=== PATIENT | female | born 1980 | race Caucasian/White ===

== ENCOUNTER → 2023-09-19 | Emergency (ER) | payer OTHER ==
[~2023-09-19] VITALS: Ht 142.2 cm; Wt 41.5 kg
[~2023-09-19] MED LIST: CYCL-1 PO; CYCL-120 PO; DIAZ5TAB22 PO; HYDR-3965 PO; HYDR-3973 PO; HYDR1TAB PO; IBUP-1051 PO; IBUP-1984 PO; NAPR-56 PO; PANT-47 PO; RISP0.5T74 PO; TRAZ-91 PO; VENL-190 PO; ZOF4T PO
[2023-09-19 12:36] VITALS: BP 126/70; PULSE 78; RESP 18; TEMP 97.8; O2SAT 97
== END | disposition home or self-care (01) ==
LOC: ER 10:48
DX: S92.901D Unspecified fracture of right foot, subsequent encounter for fracture with routine healing (principal); G89.29 Other chronic pain; F31.9 Bipolar disorder, unspecified; Z88.0 Allergy status to penicillin; Z88.5 Allergy status to narcotic agent; Z79.899 Other long term (current) drug therapy; Z91.040 Latex allergy status; X58.XXXD Exposure to other specified factors, subsequent encounter
CPT/HCPCS: 99284

== ENCOUNTER 2025-04-02 23:49 | Emergency (ER) | payer OTHER ==
[~2025-04-02] VITALS: Ht 142.2 cm; Wt 45.0 kg
[~2025-04-02 23:49] MED LIST changes: -HYDR-3965 PO; -HYDR-3973 PO; -NAPR-56 PO
[2025-04-02 23:54] VITALS: BP 119/67; PULSE 99; O2SAT 97
--- NOTE | 2025-04-03 00:28 | Physician Documentation ---
History of Present Illness ~ Chief Complaint: Toe pain Stated Complaint: TOE PAIN Time Seen by MD: 00:06 [facility] Patient presents to the emergency room with pain to her right 5th digit. She had dropped a sewing machine on it yesterday. Taking ibuprofen for pain. Concerned it might be broken. History of metatarsal fracture on affected toe previously about 1-2 years ago. Tetanus witin 5 years: Yes Medication Reconciliation Allergies: Coded Allergies: Penicillins (Verified Allergy, Intermediate, HIVES, 04/02/25) >5 years, hives, no treatment required, PEN-FAST 2 morphine (Verified Allergy, Intermediate, HIVES, 04/02/25) latex (Unverified Allergy, Unknown, 04/02/25) lorazepam (Verified Allergy, Unknown, 04/02/25) Scheduled Cyclobenzaprine Hcl (Flexeril), 10 MG PO TID Diazepam* (Valium*), 5 MG PO qhs Hydrocodone/Acetaminophen (Vicodin 5-500 Tablet), 1-2 TAB PO Q6H Ibuprofen* (Motrin*), 800 MG PO TID Ibuprofen* (Motrin*), 800 MG PO TID Ondansetron ODT* (Zofran ODT*), 4 MG PO Q6H Pantoprazole Sodium (PROTONIX tablet), 1 TABLET PO DAILY Trazodone Hcl* (Trazodone Hcl*), 150 MG PO HS, (Reported) Venlafaxine HCl (Effexor Xr), 75 MG PO DAILY, (Reported) Scheduled PRN Cyclobenzaprine* (Cyclobenzaprine*), 1 TABLET PO Q8H PRN for muscle spasms Risperidone (Risperdal), 0.5 MG PO QID PRN, (Reported) Past Medical History Past Medical History: No Pertinent History, Chronic Pain, Anxiety, Depression Past Surgical History: , other Other Past Surgical History: balloon valvoplasty age 8, has residual murmur Alcohol Use: Heavy Drug Use: none Lives In: Home Occupation: employed Review of Systems ROS All review of systems negative except as per HPI Physical Exam Vital Signs: Temperature: 98.6, Source: Temporal, Heart Rate: 99, Respiratory Rate: 15, BP: 119/67, Pulse Oximetry: 97, Weight: 45.000 Physical Exam General: Patient is awake, alert, oriented x4 in no acute distress Head: Normocephalic and atraumatic. Eyes: Conjunctival normal. EOMI. PERRL. ENT: Mucous membranes moist. Neck: Supple, trachea is midline. Chest: Clear to auscultation bilaterally without rales, rhonchi, or wheezes. There is no accessory muscle use or retractions. Cardiac: RRR without murmurs, gallops, or rubs. Abd: Soft, nondistended, nontender, with normoactive bowel sounds. No guarding, rebound, or rigidity. Extremities: Right 5th digit has ecchymosis and swelling to it Progress Results/Orders Results/Orders Orders - CARLOS A YANG MD Toe(S) (04/03/25 00:15) Completed Orders - CARLOS A YANG MD Toe(S) (04/03/25 00:15) Vital Signs 04/02/25 23:54 Temp 98.6 Pulse 99 Resp 15 B/P (MAP) 119/67 Pulse Ox 97 EKG/XRAY/CT/US/VASC/MRI Bone/Soft Tissue X-Ray (Ext.) : Additional Comment Foot series interpreted by myself shows no fractures, no dislocations and no foreign bodies Medical Decision Making Findings Patient presented to the emergency room with toe pain as per HPI. Differentials include but are not limited to fractures, dislocation, soft tissue injury, tendinous rupture therefore x-ray performed which was reassuring. I have low suspicion for tendinous rupture given mechanism of injury. Ibuprofen and Tylenol discussed as well as ice application with frostbite precautions revi ewed. Departure Disposition: 01 HOME / SELF CARE / HOMELESS Impression: Primary Impression: Pain of toe Condition: Stable Discharge Instructions: RICE Therapy for Routine Care of Injuries, [id number] Additional Instructions: Careful frostbite precautions if applying ice Referrals: NO PRIMARY CARE PROVIDER (PCP) Signature Scribe Signature: No scribe Attestation: The note accurately reflects work and decisions made by me.Carlos A Yang MD 04/03/25 00:28 CARLOS A YANG MD Apr 03, 2025 00:28
--- NOTE | 2025-04-03 00:38 | RADIOLOGY REPORT ---
Procedure: DI TOE(S) 04/03/2025 12:10 AM TECHNIQUE: DI TOE(S), a single image of the foot was obtained Indication: TOE PAIN RIGHT Comparison: None FINDINGS/IMPRESSION: Single radiograph of the foot without evidence for acute fracture. Additional v iews are recommended in further assessment if clinical symptoms persist. Chronic fracture of the 5th metatarsal.
[2025-04-03 00:50] VITALS: RESP 16
[2025-04-03] MEDS: HYDROcodone/acetaminophen 5mg/325mg tablet PO ONE (00:50)
[2025-04-03] MEDS: ondansetron 4mg rapidly disintigrating tab PO ONE (00:50)
[2025-04-03 00:54] VITALS: TEMP 98.6
== END 2025-04-03 00:57 | disposition home or self-care (01) ==
LOC: ER 23:50
DX: M79.674 Pain in right toe(s) (principal); F32.A Depression, unspecified; F41.9 Anxiety disorder, unspecified; Z88.0 Allergy status to penicillin; Z88.5 Allergy status to narcotic agent; Z88.8 Allergy status to other drugs, medicaments and biological substances
CPT/HCPCS: 73660; 99283

== ENCOUNTER 2025-06-29 14:37 | Emergency (ER) | payer OTHER ==
[~2025-06-29] VITALS: Ht 142.2 cm; Wt 45.7 kg
[2025-06-29 14:45] VITALS: TEMP 98.1
--- NOTE | 2025-06-29 14:46 | ELECTROCARDIOGRAPH REPORT ---
[facility] Test Date: 2025-06-29 Test Time: 14:41:18 Pat Name: MAVIS DAVIS Department: EMERGENCY ROOM [id number] Room: Gender: F Limited Radiology Technician: LAVERN : 1980 Requested By: JUSTINA GONZALEZ Order Number: [id number] Reading MD: Dr. Josué Kearney Measurements Intervals [place] Rate: 117 P: 77 MT: 168 QRS: -82 QRSD: 89 T: 77 QT: 331 QTc: 462 Interpretive Statements Sinus tachycardia Biatrial enlargement RSR' in V1 or V2, right VCD or RVH Inferior infarct, acute (LCx) Lateral leads are also involved Electronically Signed On 06-29-2025 18:17:[address] Josué Kearney Please click the below link to view image of tracing.
[2025-06-29 14:57] LABS: MEAN PLATELET VOLUME 8.0 FL (7.4-10.4); RED CELL DISTRIBUTION WIDTH 13.6 % (11.5-14.5)
--- NOTE | 2025-06-29 15:13 | RADIOLOGY REPORT ---
CHEST RADIOGRAPH Indication: CP Technique: Single frontal view of the chest was obtained Comparison: CHEST,SINGLE VIEW on DOS: 03/10/19 FINDINGS: Lines and Tubes: None Lungs: No focal consolidation. Pleura: No effusion. No pneumothorax. Cardiomediastinal contours: Unremarkable Bones: No acute osseous abnormality. 0.5 x 1.9 cm metallic density overlying an upper lumbar vertebra which is most likely external to the patient. IMPRESSION: No acute cardiopulmonary disease.
[2025-06-29 15:40] LABS: CREATININE 0.79 MG/DL (0.40-0.90); PRO BRAIN NATRIURETIC PEPTIDE 127 PG/ML (0-125); TOTAL CARBON DIOXIDE 21.6 MMOL/L (24-32); eCRCL 53 ML/MIN; eGFR 80 ML/MIN
--- NOTE | 2025-06-29 16:11 | Physician Documentation ---
History of Present Illness ~ Chief Complaint: Chest Pain Stated Complaint: CP Time Seen by MD: 15:31 [facility] Arrival: Ambulatory HPI 44-year-old female presents to the ED with a complaint of intermittent chest pain. Describes it as pressure. States she also has a chronic history of anxiety and takes 50 mg of hydroxyzine but does not use it daily. She denies any shortness the breath did report some nausea. Denies any numbness or tingling. States that normally when she gets these symptoms she takes a few deep breaths in the pain goes away what she did earlier today. Took a nap and then woke up with a chest pain. She also said that the chest pain was worse after eating Day of Onset: Jun 29, 2025 Medication Reconciliation Allergies: Coded Allergies: Penicillins (Verified Allergy, Intermediate, HIVES, 06/29/25) >5 years, hives, no treatment required, PEN-FAST 2 morphine (Verified Allergy, Intermediate, HIVES, 06/29/25) latex (Unverified Allergy, Unknown, 06/29/25) lorazepam (Verified Allergy, Unknown, 06/29/25) Scheduled Cyclobenzaprine Hcl (Flexeril), 10 MG PO TID Diazepam* (Valium*), 5 MG PO qhs Hydrocodone/Acetaminophen (Vicodin 5-500 Tablet), 1-2 TAB PO Q6H Ibuprofen* (Motrin*), 800 MG PO TID Ibuprofen* (Motrin*), 800 MG PO TID Ondansetron ODT* (Zofran ODT*), 4 MG PO Q6H Pantoprazole Sodium (PROTONIX tablet), 1 TABLET PO DAILY Trazodone Hcl* (Trazodone Hcl*), 150 MG PO HS, (Reported) Venlafaxine HCl (Effexor Xr), 75 MG PO DAILY, (Reported) Scheduled PRN Cyclobenzaprine* (Cyclobenzaprine*), 1 TABLET PO Q8H PRN for muscle spasms Risperidone (Risperdal), 0.5 MG PO QID PRN, (Reported) Past Medical History Past Medical History: No Pertinent History, Chronic Pain, Anxiety, Depression Past Surgical History: , other Other Past Surgical History: balloon valvoplasty age 8, has residual murmur Alcohol Use: Heavy Drug Use: none Lives In: Home Occupation: employed Review of Systems All Other Systems at this time: Reviewed and Negative ROS As stated above in the HPI, otherwise all systems are reviewed and negative. Physical Exam Vital Signs: Temperature: 98.1, Source: Temporal, Heart Rate: 113, Respiratory Rate: 16, BP: 112/87, Pulse Oximetry: 96, Weight: 45.700 Oxygen Flow Rate: 0 Physical Exam General: Alert, no apparent distress. Respiratory: Lungs clear, no respiratory distress. Chest: No accessory muscle use. Cardiovascular: Regular rate and rhythm, no murmurs. Gastrointestinal: Soft, nontender, nondistended. Bowels sounds present. Neurologic: Oriented x4. Psychiatric: Normal mood and affect. Skin: Normal color, warm and dry. No edema, no ecchymosis. Progress Results/Orders Results/Orders Completed Orders - PHILIPP KEITA NP D-Dimer (06/29/25 15:48) Urinalysis (06/29/25 16:04) LA (06/29/25 16:04) Diazepam Tablet (Valium Tablet) (06/29/25 16:15) Medications Received in ER Medications (Trade) Dose Ordered Sig/Ayesha Route PRN Reason Start Time Stop Time Status Last Admin Dose Admin (Valium tablet) 10 mg ONCE ONCE PO 06/29/25 16:15 06/29/25 16:16 DC 06/29/25 16:31 10 MG Vital Signs 06/29/25 06/29/25 06/29/25 06/29/25 14:45 15:44 15:47 16:31 Temp 98.1 Pulse 116 113 Resp 18 18 16 20 B/P (MAP) 110/73 112/87 (95) Pulse Ox 98 96 O2 Flow Rate 0 0 06/29/25 17:50 Pulse 100 Resp 16 B/P (MAP) 109/87 Pulse Ox 98 Laboratory Tests Test 06/29/25 14:47 06/29/25 16:57 06/29/25 17:00 White Blood Count 17.1 H Red Blood Count 4.96 Hemoglobin 15.0 Hematocrit 43.7 Mean Corpuscular Volume 88.2 Mean Corpuscular Hemoglobin 30.3 Mean Corpuscular Hemoglobin Concent 34.3 Red Cell Distribution Width 13.6 Platelet Count 320 Mean Platelet Volume 8.0 Neutrophils (%) (Auto) 89.5 H Lymphocytes (%) (Auto) 6.6 L Monocytes (%) (Auto) 3.3 Eosinophils (%) (Auto) 0.1 Basophils (%) (Auto) 0.5 Neutrophils # (Auto) 15.3 H Lymphocytes # (Auto) 1.1 Monocytes # (Auto) 0.6 Eosinophils # (Auto) 0.0 Basophils # (Auto) 0.1 CBC Comment D-Dimer 0.33 D-Dimer Comment Sodium Level 137 Potassium Level 3.8 Chloride Level 105 Carbon Dioxide Level 21.6 L Anion Gap 10 Blood Urea Nitrogen 14 Creatinine 0.79 Estimated GFR/1.73 m2 80 BUN/Creatinine Ratio 17.7 Glucose Level 118 H Lactic Acid Level 1.0 Calcium Level 9.1 Total Bilirubin 0.9 Direct Bilirubin 0.2 Aspartate Amino Transf (AST/SGOT) 23 Alanine Aminotransferase (ALT/SGPT) 16 Alkaline Phosphatase 80 Troponin I High Sensitivity < 4 L 4 Troponin I High Sens Percent Delta Troponin I Hi Sens Absolute Change Pro-B-Type Natriuretic Peptide 127 H Total Protein 8.5 H Albumin 4.1 Globulin 4.4 H Albumin/Globulin Ratio 0.9 L Chemistry Comments Urine Specimen Description Cln catch midstream Urine Color Yellow Urine Clarity Clear Urine pH 5.5 Urine Specific [place] 1.025 Urine Protein Negative Urine Glucose (UA) Negative Urine Ketones >=80 Urine Occult Blood Negative Urine Nitrite Negative Urine Bilirubin Negative Urine Urobilinogen 0.2 Urine Leukocyte Esterase Negative Volume Urine Centrifuged 10 ml Urine Comment Medical Decision Making Findings I ordered most multiple tests for this patient in her laboratory values came back mostly unremarkable. I do not suspect a cardiac event her EKG was reassuring on the 2nd test. He has been asymptomatic while in the ED I did provide her something for her anxiety which I suspect is largely the reason for her presentation today. I advised her to continue taking her hydroxyzine as directed. She did have an elevated white count of 17 which I also suspect is stress induced and possible dehydration. This time she is hemodynamically stable vitals reassuring and feels much better. I am going to discharge her for evaluation in the outpatient setting Differential Dx:Considerations: Include: angina, aortic dissection, chest wall pain, cholelithiasis, CHF, costochondritis, esophageal reflux/spasm, gastritis, herpes zoster, myocardial infarction, pericarditis, pleuritis, pancreatitis, pneumonia, pneumothorax, pulmonary embolus, other Departure Disposition: 01 HOME / SELF CARE / HOMELESS Impression: Primary Impression: Anxiety Condition: Stable Discharge Instructions: Managing Anxiety, Adult, Nonspecific Chest Pain, Adult Referrals: NO PRIMARY CARE PROVIDER (PCP) Education Educated: Patient Educated regarding: diagnosis Signature Scribe Signature: g Attestation: Scribed for Philipp Keita Copy Supervisor by Philipp Smith NP . 06/29/25 23:52 PHILIPP KEITA NP Jun 29, 2025 16:11
[2025-06-29 17:50] VITALS: BP 109/87; PULSE 100; RESP 16; O2SAT 98
[2025-06-29 18:02] LABS: LEUKOCYTE ESTERASE ,URINE NEGATIVE (Neg); NITRITES, URINE NEGATIVE (Neg); OCCULT BLOOD,URINE NEGATIVE (Neg)
[2025-06-29 18:05] LABS: UA COLLECTION TYPE CLN CATCH MIDSTREAM
== END 2025-06-29 17:59 | disposition home or self-care (01) ==
LOC: ER 14:37
DX: F41.9 Anxiety disorder, unspecified (principal); R07.89 Other chest pain; R06.02 Shortness of breath; Z88.0 Allergy status to penicillin; Z88.5 Allergy status to narcotic agent; Z88.8 Allergy status to other drugs, medicaments and biological substances; Z91.040 Latex allergy status
CPT/HCPCS: 36415; 71045; 80048; 80076; 81003; 83605; 83880; 84484; 85025; 85379; 93005; 99285

== ENCOUNTER 2025-07-04 18:51 | Emergency (ER) | payer OTHER ==
[~2025-07-04] VITALS: Ht 142.2 cm; Wt 56.0 kg
[2025-07-04] MEDS ORDERED: HYDR-3686 PO (19:42)
--- NOTE | 2025-07-04 19:43 | Physician Documentation ---
History of Present Illness ~ Chief Complaint: Allergic Reaction Stated Complaint: CHEST PAIN Time Seen by MD: 19:13 Primary Medical Doctor: [facility] 44-year-old female presents to the ED complaining of possible allergic reaction after taking her 1st dose of Lexapro. She states she has had increased heart rate and sweating. Patient was recently seen here and diagnosed with suspected anxiety. Currently presents as though she is anxious. She was advised that taking Lexapro takes several weeks to buildup in your system Patient denies chest pain or nausea, vomiting. Day of Onset: Jul 04, 2025 Medication Reconciliation Allergies: Coded Allergies: Penicillins (Verified Allergy, Intermediate, HIVES, 07/04/25) >5 years, hives, no treatment required, PEN-FAST 2 morphine (Verified Allergy, Intermediate, HIVES, 07/04/25) latex (Unverified Allergy, Unknown, 07/04/25) lorazepam (Verified Adverse Reaction, Severe, MAKES HER SUICIDAL, 07/04/25) Scheduled Cyclobenzaprine Hcl (Flexeril), 10 MG PO TID Diazepam* (Valium*), 5 MG PO qhs Hydrocodone/Acetaminophen (Vicodin 5-500 Tablet), 1-2 TAB PO Q6H Hydroxyzine Hcl* (Atarax*), 1 TAB PO Q12H Ibuprofen* (Motrin*), 800 MG PO TID Ibuprofen* (Motrin*), 800 MG PO TID Ondansetron ODT* (Zofran ODT*), 4 MG PO Q6H Pantoprazole Sodium (PROTONIX tablet), 1 TABLET PO DAILY Trazodone Hcl* (Trazodone Hcl*), 150 MG PO HS, (Reported) Venlafaxine HCl (Effexor Xr), 75 MG PO DAILY, (Reported) Scheduled PRN Cyclobenzaprine* (Cyclobenzaprine*), 1 TABLET PO Q8H PRN for muscle spasms Risperidone (Risperdal), 0.5 MG PO QID PRN, (Reported) Past Medical History Past Medical History: No Pertinent History, Chronic Pain, Anxiety, Depression Past Surgical History: , other Other Past Surgical History: balloon valvoplasty age 8, has residual murmur Alcohol Use: Heavy Drug Use: none Lives In: Home Occupation: employed Review of Systems All Other Systems at this time: Reviewed and Negative ROS As stated above in the HPI, otherwise all systems are reviewed and negative. Physical Exam Vital Signs: Temperature: 98.6, Source: Temporal, Heart Rate: 96, Respiratory Rate: 15, BP: 123/70, Pulse Oximetry: 99, Weight: 56.000 Physical Exam General: Alert, no apparent distress. HEENT: PERRL, EOMI, no injection, moist mucous membranes. Neck: Full range of motion. Respiratory: Lungs clear, no respiratory distress. Chest: No accessory muscle use. Cardiovascular: Regular rate and rhythm, no murmurs. Gastrointestinal: Soft, nontender, nondistended. Bowels sounds present. Extremities: Normal range of motion, no deformity. Neurologic: Oriented x4. Psychiatric: Normal mood and affect. Skin: Normal color, warm and dry. No edema, no ecchymosis. Progress Results/Orders Results/Orders Vital Signs 07/04/25 18:57 Temp 98.6 Pulse 96 Resp 15 B/P (MAP) 123/70 Pulse Ox 99 Medical Decision Making Findings Patient presents severely anxious spent a good deal of time talking her down explaining to her that her symptoms are secondary to moderate to severe anxiety. I did advise her of this and her heart rate went down to normal limit. I am going to start her on hydroxyzine today she needs a really follow up with her therapist and primary care for further evaluation of her anxiety Differential Dx:Considerations: Include: Alcohol abuse, Anxiety, Bipolar disorder, Conversion disorder, Depression, Encephaloathy, Homicidal, Panic disorder, Personality disorder, Schizophrenia, Substance abuse, Suicidal, Other Departure Disposition: 01 HOME / SELF CARE / HOMELESS Impression: Primary Impression: Anxiety Condition: Improved Discharge Instructions: Managing Anxiety, Adult Referrals: NO PRIMARY CARE PROVIDER (PCP) Prescriptions Hydroxyzine Hcl* (Atarax*) 25 Mg Tablet 1 TAB PO Q12H for anxiety for 30 Days, #60 TAB Prov: PHILIPP KEITA NP 07/04/25 Education Educated: Patient Educated regarding: diagnosis Signature Scribe Signature: l Attestation: Scribed for Philipp Keita Np by Philipp Smith NP . 07/04/25 19:59 PHILIPP KEITA NP Jul 04, 2025 19:43
[2025-07-04 20:37] VITALS: BP 125/71; PULSE 89; RESP 17; TEMP 98.1; O2SAT 99
== END 2025-07-04 20:41 | disposition home or self-care (01) ==
LOC: ER 18:52
DX: F41.9 Anxiety disorder, unspecified (principal); F32.A Depression, unspecified; G89.29 Other chronic pain; F10.90 Alcohol use, unspecified, uncomplicated; Z88.0 Allergy status to penicillin; Z88.5 Allergy status to narcotic agent; Z91.040 Latex allergy status; Z88.8 Allergy status to other drugs, medicaments and biological substances; Z79.899 Other long term (current) drug therapy; Y90.9 Presence of alcohol in blood, level not specified; Z98.890 Other specified postprocedural states
CPT/HCPCS: 99283